=== PATIENT | female | born 1965 | race Caucasian/White ===

== ENCOUNTER 2023-08-16 05:27 | Outpatient (CLI) | payer BC, SELFPAY ==
[2023-08-16 11:32] LABS: Hemoglobin A1C 5.3 % (<5.7)
[2023-08-16 11:38] LABS: Abs Immature Grans 0.02 10^3/uL (0.0-0.06); Absolute Basophil Count 0.05 10^3/uL (0.0-0.2); Absolute Eosinophil Count 0.08 10^3/uL (0.0-0.7); Absolute Lymphocyte Count 2.34 10^3/uL (1.2-3.4); Absolute Monocyte Count 0.72 10^3/uL (0.1-0.8); Absolute Neutrophil Count 5.03 10^3/uL (1.2-6.7); Basophils % 0.6; HGB 13.6 g/dL (11.2-15.7); Immature Grans % 0.2; Lymphocytes % 28.4; MCH 29.8 pg (27.0-33.0); MCV 88 fL (80-95); MPV 10.1 fL (8.0-11.0); Monocytes % 8.7; Neutrophils % 61.1; Platelet Count 259 10^3/uL (130-400); RBC 4.56 10^6/uL (3.93-5.22); RDW-SD 38.6 fL; WBC 8.24 10^3/uL (4.4-10.8)
[2023-08-16 12:36] LABS: ALT 24 U/L (14-59); AST 14 U/L (15-37); Alkaline Phosphatase 93 U/L (46-116); Anion Gap 8.6 mmol/L (3-11); BUN 12 mg/dL (7-18); Bilirubin, Total 0.4 mg/dL (0.2-1.0); CO2 28.4 mmol/L (21.0-32.0); CREATININE 0.8 mg/dL (0.55-1.02); Calculated LDL 116 mg/dL (<100); Chloride 106 mmol/L (98-107); Cholesterol 213 mg/dL (<200); Estimated GFR 85.89 (mL/min/1.73m2); Glucose 89 mg/dL (74-106); HDL Cholesterol 60 mg/dL (40-60); Potassium 4.3 mmol/L (3.5-5.1); Sodium 143 mmol/L (136-145); TSH (W/Ref FT4) 1.14 uIU/mL (0.36-3.74); Total Protein 7.5 g/dL (6.4-8.2); Triglyceride 188 mg/dL (<150); Vitamin B12 1395 pg/mL (193-986); Vitamin D 25 Total 24.3 ng/mL (30-100)
== END 2023-08-16 05:28 | disposition home or self-care (01) ==
LOC: LBO 05:27
PROVIDERS: Visit Provider Nurse Practitioner Family
DX: E55.9 Vitamin D deficiency, unspecified (principal); I10 Essential (primary) hypertension; E78.5 Hyperlipidemia, unspecified
CPT/HCPCS: 36415; 80053; 80061; 82306; 82607; 83036; 84443; 85025

== ENCOUNTER 2023-08-23 04:55 | Outpatient (CLI) | payer BC, SELFPAY ==
[2023-08-23 18:06] LABS: Vitamin B12 1298 pg/mL (193-986)
[2023-08-24 20:19] LABS: Hep A Total Ab w Rflx IgM Negative (Negative)
[2023-08-24 20:27] LABS: Hep B Core Antibody Negative (Negative)
[2023-08-27 14:01] LABS: Hepatitis Be Antigen Negative (Negative)
== END 2023-08-23 04:56 | disposition home or self-care (01) ==
LOC: LBO 04:55
PROVIDERS: Visit Provider Nurse Practitioner Family
DX: D51.3 Other dietary vitamin B12 deficiency anemia (principal)
CPT/HCPCS: 36415; 86704; 86709; 82607; 87350

== ENCOUNTER 2025-01-22 16:26 | Emergency (ER) | payer SELFPAY ==
[2025-01-22 16:30] VITALS: BP 169/88; PULSE 143; RESP 22; O2SAT 95
--- NOTE | 2025-01-22 16:30 | DI.RAD_ITS ---
Exam(s) XR HAND RT COMPLETE EXAM: XR HAND RT COMPLETE CLINICAL HISTORY: dog bite. TECHNIQUE: 2D digital imaging was performed. COMPARISON: No exams were available for comparison FINDINGS: 3 views No evidence of acute fracture nor subluxation. There appears to be some soft tissue trauma between the thumb and index finger with some gas in the soft tissues but no radiopaque foreign body at this level. Incidentally noted are some degenerative changes in the DIP joints IMPRESSION: No acute osseous findings. Soft tissue laceration thenar eminence region. No radiopaque foreign bodies DATA REPOSITORY: RADIATION DOSE DELIVERED:
[2025-01-22 16:53] LABS: Abs Immature Grans 0.06 10^3/uL (0.0-0.06); HCT 41.0 % (36.0-46.0); HGB 14.1 g/dL (11.2-15.7); MCH 29.9 pg (27.0-33.0); MCHC 34.4 % (32.0-36.0); MCV 87 fL (80-95); MPV 9.9 fL (8.0-11.0); Platelet Count 324 10^3/uL (130-400); RBC 4.71 10^6/uL (3.93-5.22); RDW 12.1 % (11.7-14.6); RDW-SD 38.6 fL; WBC 14.52 10^3/uL (4.4-10.8)
[2025-01-22] MEDS: Ondansetron 4 MG/2 ML VIAL IVP (16:55)
[2025-01-22] MEDS: Ketorolac 15 MG/ML VIAL IVP (16:55)
[2025-01-22] MEDS: Normal Saline 1,000 ML 1000 ML IV (17:00)
[2025-01-22] MEDS: Acetaminophen 500 MG TAB 1000 MG PO (17:00)
[2025-01-22] MEDS: AMPICILLIN/SULBACTAM 3 GM in Normal Saline 100 ML IVPB (17:01)
[2025-01-22] MEDS: Diph,Pertuss(Acell),Tet Vac/Pf 0.5 ML SYR IM (17:01)
[2025-01-22 17:09] LABS: ALT 25 U/L (14-59); AST 19 U/L (15-37); Albumin 4.4 g/dL (3.4-5.0); Alkaline Phosphatase 108 U/L (46-116); Anion Gap 16.3 mmol/L (3-11); BUN 14 mg/dL (7-18); Bilirubin, Total 0.4 mg/dL (0.2-1.0); CO2 20.7 mmol/L (21.0-32.0); Calcium 9.2 mg/dL (8.5-10.1); Chloride 102 mmol/L (98-107); Estimated GFR 43.34 (mL/min/1.73m2); Glucose 120 mg/dL (74-106); Potassium 3.4 mmol/L (3.5-5.1); Sodium 139 mmol/L (136-145); Total Protein 8.1 g/dL (6.4-8.2)
[2025-01-22 17:16] LABS: RBC Morphology Normal
[2025-01-22] MEDS: HYDROmorphone 2 MG/ML SYR 0.5 MG IVP (18:01)
[2025-01-22 18:03] VITALS: PULSE 93; RESP 18; O2SAT 99
--- NOTE | 2025-01-22 18:04 | NUR.NOTE ---
Nursing Note: R hand dog bite wound irrigated with 1 liter of NSS per provider.
--- NOTE | 2025-01-22 18:57 | ED.GENADUL_ITS ---
Discharge Plan Disposition Patient Disposition: Home Condition: Stable Discharge Details Clinical Impression: Dog bite of multiple sites Primary Care Provider: Unknown,Unknown ED Provider: Landen Barba Home Meds and New Rx's Prescriptions: New amoxicillin-pot clavulanate 875-125 mg tablet 1 tab PO BID 14 Days Qty: 28 0RF mupirocin [Centany] 2 % ointment 1 applic topical BID Qty: 15 0RF Discharge Instructions Instructions: Amoxicillin and Clavulanate, Mupirocin, Animal Bites ED Additional Instructions: You were seen in the emergency department for the dog bite of your right leg and right hand, we had to loosely approximate your significant laceration to your right hand with 3 sutures of 4-0 Prolene that need to be removed in 7 to 10 days. You should likely follow-up with your primary or the orthopedics office in regards to the extent of this wound and a significant risk for infection. We gave you a dose of IV antibiotics here in the ER, take the Augmentin tablet we have provided to go before bed, sheepskin pickler the rest of your prescription tomorrow, use topical mupirocin to the wounds for the first 72 hours or perhaps an additional 24 hours and then just keep the areas clean and dry, and the first 2 days please change your dressings at least twice per day and slowly taper off. Please use therapeutic dosing of Tylenol (acetamenophen) & Advil (ibuprofen) in an alternating fashion as follows: Take 1000mg of Tylenol every 6 hours without missing doses- that is 4 times per day. [place] in between the Tylenol dosings, take 400-600mg of Advil also on a 6 hour schedule, that is also 4 times per day. The daily maximum dosing of Tylenol is 4000mg, and the daily maximum dosing of Advil is 2400mg. This is safe to do for weeks. Please note that some common cold medications & prescription pain medications may contain acetamenophen and you need to read OTC drug labels and factor that in to maximum daily dosings. Please return for any signs of infection like red streaking up the arm, fever, nausea or weakness Referrals: [facility] [Provider Group] Discharge Data Discharge Date/Time-TO BE ENTERED AT DEPARTURE: 01/22/25 21:12 HPI General Date/Time Provider Initiated Documentation: 01/22/25 16:36 . HPI Narrative: 59 year-old female presents to ED today by POV/ambulating with her family with a chief complaint of dog bite - from neighbor's pitbull who just charged her out of nowhere- with a bad laceration to R hand web space, and another puncture bite to R lateral thigh with onset just prior to arrival. Quality described as very painful, bleeding to both areas- unsure of Tdap status, no radiation to inability to move her fingers or thumb, visible bone, abdominal injury, facial injury- patient states that unsure of dogs shots status but can find out, states neighbor put the dog down already. Severity is described as 02/13. Palliating factors include holding it very still. Provoking factors include movement. Patient not anticoagulated. Related Data Home Medications ?Medication ?Instructions ?Recorded ?Confirmed amoxicillin 875 mg-potassium 1 tab PO BID 14 days #28 tabs 01/22/25 clavulanate 125 mg tablet mupirocin 2 % topical ointment 1 applic topical BID #1 5 grams 01/22/25 (Centany) Previous Rx's ?Medication ?Instructions ?Recorded amoxicillin 875 mg-potassium 1 tab PO BID 14 days #28 tabs 01/22/25 clavulanate 125 mg tablet mupirocin 2 % topical ointment 1 applic topical BID #1 5 grams 01/22/25 (Centany) Allergies Allergy/AdvReac Type Severity Reaction Status Date / Time No Known Allergies Allergy Unverified 04/12/23 09:26 General Stated Complaint: AnimalBite ALEXIS: 2 Review of Systems All systems reviewed & are unremarkable except as noted in HPI and below Exam Narrative Exam Narrative: GENERAL APPEARANCE: Well-nourished, non-toxic, awake and alert, atraumatic, moderate acute distress. SKIN: Warm, pink, dry, 4 canine teeth punctures to R lateral thigh without bleeding, gaping wound in the web space of R hand ~7cm- R hand dominant, with no tendons visualized, full ROM in thumb, R radial pulse 2+, sensation intact all fingertips, almost [id number] the web space HEAD: Normocephalic, atraumatic, normal hair distribution for gender/age. EYES: Normal conjunctiva, no exudates on lids/lashes. ENT: Nares patent, no circumoral cyanosis, no facial swelling NECK: Supple, trachea midline, painless cervical ROM. LUNGS/CHEST: Non-labored respirations, normal A/P diameter, symmetrical expansion, no chest wall deformity HEART (CV/PV): Regular rate- tachycardic on arrival- normalized quickly with rest, no peripheral edema, no JVD. ABDOMEN: Soft, non-distended, no guarding, no tenderness. MSK: Normal ROM, no swelling/deformity to bilateral UEs or LEs, moving all extremities without weakness, no cyanosis, spine midline without tenderness, normal curvature. NEURO: Mental Status AAOx4 - alert to person, place, time, events No facial droop, no forehead involvement. Motor: No focal weakness - strength 5/5 in bilateral UEs and LEs, proximal and distal, symmetric. Sensory: sensation intact to light touch globally. Gait normal: patient ambulated without ataxia into ED room. PSYCH: euthymic, cooperative, pleasant, appropriate speech Course Vital Signs Vital signs: Vital Signs Pulse 143 H 01/22/25 16:30 Respiratory Rate 22 01/22/25 16:30 Blood Pressure 169/88 H 01/22/25 16:30 Pulse Oximetry 95 01/22/25 16:30 Pulse 93 H 01/22/25 18:03 Respiratory Rate 18 01/22/25 18:03 Respiratory Effort Normal 01/22/25 18:03 Respiratory Depth Normal 01/22/25 18:03 Respiratory Pattern Normal 01/22/25 18:03 Blood Pressure 169/88 H 01/22/25 16:30 Pulse Oximetry 99 01/22/25 18:03 Oxygen Delivery Method Room Air 01/22/25 18:03 Oxygen Flow Rate 0 01/22/25 18:03 Pain Level 10 01/22/25 18:03 Lab/Test Results Lab/Test Results: Laboratory Tests Range/Units 01/22/25 16:45 WBC (4.4-10.8) 10^3/uL 14.52 H RBC (3.93-5.22) 10^6/uL 4.71 Hgb (11.2-15.7) g/dL 14.1 Hct (36.0-46.0) % 41.0 MCV (80-95) fL 87 MCH (27.0-33.0) pg 29.9 MCHC (32.0-36.0) % 34.4 RDW (11.7-14.6) % 12.1 Plt Count (130-400) 10^3/uL 324 MPV (8.0-11.0) fL 9.9 Immature Gran % See Differential Neutrophils % % 43.0 Lymphocytes % % 48.0 Monocytes % % 8.0 Eosinophils % % 1.0 Basophils % % 0.0 Nucleated RBC % (0.0-0.3) % 0.0 Absolute Neutrophils (1.2-6.7) 10^3/uL 6.24 Absolute Lymphocytes (1.2-3.4) 10^3/uL 6.97 H Absolute Monocytes (0.1-0.8) 10^3/uL 1.16 H Absolute Eosinophils (0.0-0.7) 10^3/uL 0.15 Absolute Basophils (0.0-0.2) 10^3/uL 0.00 RBC Morphology Normal Sodium (136-145) mmol/L 139 Potassium (3.5-5.1) mmol/L 3.4 L Chloride (98-107) mmol/L 102 Carbon Dioxide (21.0-32.0) mmol/L 20.7 L Anion Gap (3-11) mmol/L 16.3 H BUN (7-18) mg/dL 14 Creatinine (0.55-1.02) mg/dL 1.4 H Est GFR (CKD-EPI 2020) (mL/min/1.73m2) 43.34 Glucose (74-106) mg/dL 120 H Calcium (8.5-10.1) mg/dL 9.2 Total Bilirubin (0.2-1.0) mg/dL 0.4 AST (15-37) U/L 19 ALT (14-59) U/L 25 Alkaline Phosphatase (46-116) U/L 108 Total Protein (6.4-8.2) g/dL 8.1 Albumin (3.4-5.0) g/dL 4.4 Procedure Laceration Laceration 1: Standard Time Out Performed: No Patient Consented: Verbally Site: hand Side (If applicable): right Description: irregular and contaminated Depth: simple, single layer Local anesthetic: Lidocaine 1% Amount of anesthesia used (mL): 5 Pre-repair:: wound explored, irrigated extensively and deep structures intact Skin layer closed with: nylon Suture size: 4-0 Number of sutures:: 3 Technique: simple, interrupted Complications: None Medical Decision Making This dictation utilizes [id number] dictation software and may contain unedited grammatical errors. 59 year-old female presents to ED today by POV/ambulating with her family with a chief complaint of dog bite - from neighbor's socobull who just charged her out of nowhere- with a bad laceration to R hand web space, and another puncture bite to R lateral thigh with onset just prior to arrival. Quality described as very painful, bleeding to both areas- unsure of Tdap status, no radiation to inability to move her fingers or thumb, visible bone, abdominal injury, facial injury- patient states that unsure of dogs shots status but can find out, states neighbor put the dog down already. Severity is described as 10/. Palliating factors include holding it very still. Provoking factors include movement. Patients' medical history: negative, otherwise healthy. Family and social history: noncontributory. Pertinent exam findings / vital signs include 4 canine teeth punctures to R lateral thigh without bleeding, gaping wound in the web space of R hand ~7cm- R hand dominant, with no tendons visualized, full ROM in thumb, R radial pulse 2+, sensation intact all fingertips, almost [id number] the web space. Differential / pathologies of concern include laceration, tendon injury unlikely, infection, fracture. Diagnostic studies of: -CBC, CMP, XR R Hand. - CBC unremarkable - CMP unremarkable, SCr 1.4 - XR shows no acute fractures Interventions of: -Tdap given, IV antibiotics with ampicillin/sulbactam, ran 1L through the wound followed by 30 minutes soak in dilute betadine then syringe irrigation, with loose approximation by 3 sutures and covered, Rx for Augmentin and mupirocin. Aggressive scrub and irrigation of thigh punctures. ED Course/Assessment/Plan: Wound sutured with 3 sutures of 4-0 Prolene, given IV ABX here, thorough wash- out and loose approximation, Rx for PO augmentin and murpirocin, consulted with Dr. Guardado- can follow-up with PCP or Ortho for follow-up, strict return for increasing signs of infection discussed. Findings not consistent with tendon injury, fracture. Disposition of Dog Bite of Multiple Sites. Patient verbalized understanding of the plan and return to ED criteria and engaged in shared decision making. Medical Records Medical records reviewed: Yes I reviewed the patient's medical records. Imaging Data Radiologic Study: Attestation: I personally reviewed and interpreted this imaging study as follows: Imaging: X-Ray Radiologist's impression: EXAM: XR HAND RT COMPLETE CLINICAL HISTORY: dog bite. TECHNIQUE: 2D digital imaging was performed. COMPARISON: No exams were available for comparison FINDINGS: 3 views No evidence of acute fracture nor subluxation. There appears to be some soft tissue trauma between the thumb and index finger with some gas in the soft tissues but no radiopaque foreign body at this level. Incidentally noted are some degenerative changes in the DIP joints IMPRESSION: No acute osseous findings. Soft tissue laceration thenar eminence region. No radiopaque foreign bodies Lab Data Lab results reviewed: Yes I reviewed the patient's lab results. Labs: Laboratory Tests Range/Units 01/22/25 16:45 WBC (4.4-10.8) 10^3/uL 14.52 H RBC (3.93-5.22) 10^6/uL 4.71 Hgb (11.2-15.7) g/dL 14.1 Hct (36.0-46.0) % 41.0 MCV (80-95) fL 87 MCH (27.0-33.0) pg 29.9 MCHC (32.0-36.0) % 34.4 RDW (11.7-14.6) % 12.1 Plt Count (130-400) 10^3/uL 324 MPV (8.0-11.0) fL 9.9 Immature Gran % See Differential Neutrophils % % 43.0 Lymphocytes % % 48.0 Monocytes % % 8.0 Eosinophils % % 1.0 Basophils % % 0.0 Nucleated RBC % (0.0-0.3) % 0.0 Absolute Neutrophils (1.2-6.7) 10^3/uL 6.24 Absolute Lymphocytes (1.2-3.4) 10^3/uL 6.97 H Absolute Monocytes (0.1-0.8) 10^3/uL 1.16 H Absolute Eosinophils (0.0-0.7) 10^3/uL 0.15 Absolute Basophils (0.0-0.2) 10^3/uL 0.00 RBC Morphology Normal Sodium (136-145) mmol/L 139 Potassium (3.5-5.1) mmol/L 3.4 L Chloride (98-107) mmol/L 102 Carbon Dioxide (21.0-32.0) mmol/L 20.7 L Anion Gap (3-11) mmol/L 16.3 H BUN (7-18) mg/dL 14 Creatinine (0.55-1.02) mg/dL 1.4 H Est GFR (CKD-EPI 2020) (mL/min/1.73m2) 43.34 Glucose (74-106) mg/dL 120 H Calcium (8.5-10.1) mg/dL 9.2 Total Bilirubin (0.2-1.0) mg/dL 0.4 AST (15-37) U/L 19 ALT (14-59) U/L 25 Alkaline Phosphatase (46-116) U/L 108 Total Protein (6.4-8.2) g/dL 8.1 Albumin (3.4-5.0) g/dL 4.4 PFSH All Active Problems (Updated 01/22/25 @ 20:57 by SAMANTHA Burleson) Dog bite of multiple sites (Acute) Trigger thumb of right hand (Acute) 40 mg Depo-Medrol injection: 04/12/2023 Otorrhagia of right ear (Acute) Surgical History (Updated 05/23/22 @ 12:51 by Alexandr Russ MD) History of tonsillectomy and adenoidectomy Vaginal hysterectomy Colonoscopy - IV Sedation (07/11/16) Social History Smoking/Tobacco Use Status: Former Tobacco Use Smoking risk assessment performed?: Yes Drug use: Never Housing: house Do you feel safe at home: Yes Do you feel safe in your relationship?: Yes
[2025-01-22 19:22] VITALS: BP 133/63; PULSE 83; RESP 16; O2SAT 98
[2025-01-22] MEDS: Povidone-Iodine Soln. 118 ML BTL (19:35)
--- NOTE | 2025-01-22 19:36 | NUR.NOTE ---
Nursing Note: Patient's R hand soaking in bin with NSS and betadine per provider.
[2025-01-22] MEDS: Lidocaine 1% Pres-Free 5 ML VIAL IJ (21:05)
[2025-01-22] MEDS: Amoxicillin 875/Clav. 125 TAB PO (21:05)
== END 2025-01-22 21:12 | disposition home or self-care (01) ==
PROVIDERS: Emergency Provider Physician Assistant
DX: S60.571A Other superficial bite of hand of right hand, initial encounter (principal); S81.851A Open bite, right lower leg, initial encounter; Z87.891 Personal history of nicotine dependence; Z23 Encounter for immunization; W54.0XXA Bitten by dog, initial encounter; Y93.89 Activity, other specified; Y92.018 Other place in single-family (private) house as the place of occurrence of the external cause
CPT/HCPCS: 12002; 36415; 80053; 90471; 90715; 96374; 96375; 99284; 73130; 85025; J0295; J1171; J1885; J2003; J2405